=== PATIENT | male | born 1980 | race Caucasian/White ===

== ENCOUNTER → 2019-12-03 | Outpatient (CLI) | payer OTHER, SELFPAY ==
[2019-12-03 21:40] LABS: Chlamydia Trachomatis by PCR Negative (Negative); Neisserai gonorrhoeae by PCR Negative (Negative); Probe Check PASS; Sample Adequacy Control PASS; Specimen Processing Control PASS
== END | disposition home or self-care (01) ==
LOC: LABSPEC 16:28
PROVIDERS: PCP Family Medicine; Referring Provider Urology; Visit Provider Urology
DX: N48.9 Disorder of penis, unspecified (principal); N45.3 Epididymo-orchitis
CPT/HCPCS: 87491; 87591

== ENCOUNTER 2024-08-28 13:28 | Day surgery (SDC) | payer OTHER, SELFPAY ==
--- NOTE | 2024-08-28 | LES_PTH ---
PATIENT: HATTIE RAM II LOC: [facility] [place] U#:[id number] AGE/SX: 43/M ROOM: RE08/28/[address]: Dr. Roxane Prasad MD : 1980 BED: DIS: 08/28/2024 SPEC #: [id number] RECD: 08/28/24 16:52 STATUS: SRIKANTH OLIVARES #: [id number] JERRICA: 08/28/24 00:[address]: Roxane Prasad DEPT: SURGICAL PATHOLOGY RECD BY: Luan Blunt ENTERED: 08/31/24 08:00 SP TYPE: Lesion OTHR DR: Dr. Juan C Mae MD Tissues: Skin of foot, NOS Procedures: Surgery Specimen Level IV HEADER OPERATION: Excision lesion right foot PRE-OP DIAGNOSIS: Neoplasm of uncertain behavior of skin of foot TISSUE SUBMITTED: Lesion right foot MICROSCOPIC DIAGNOSIS Right foot lesion, excisional biopsy: Verrucca vulgaris. See comment. 09/01/2024 COMMENT Clinical correlation and appropriate follow up are necessary. MICROSCOPIC DESCRIPTION Slides are reviewed. GROSS DESCRIPTION Received in fixative is one container labeled with the patient's name and designated Right foot lesion. The specimen consists of an elliptical portion of skin measuring 2.2 x 2.0cm, excised to a depth of 0.6cm. The epidermis shows a flat white lesion measuring 1.7cm in greatest dimension. The lesion appears excised. The entire specimen is submitted as follows: 1- tips of ellipse, 2-3- remainder of specimen. 08/31/2024 TC:1 CPT:98858
[2024-08-28 13:43] VITALS: BP 119/79; PULSE 84; RESP 16; TEMP 36.7; O2SAT 95; BMI 37.0
--- NOTE | 2024-08-28 14:07 | PCM.HP.BLA ---
History and Physical Date of Admission: 08/28/24 The patient is examined and there are no changes from the H&P dated 08/12/2024. He is marked in the preop holding area prior to surgery. He presents for excision of the neoplasm of his right foot. No guarantees are made against recurrence. The specimen will be sent to pathology for evaluation. He is also aware of the expected prolonged healing of the area. Assessment & Plan Assessment/Plan (1) Neoplasm of uncertain behavior of skin of foot: PLAN: Plan For excision neoplasm foot.
[2024-08-28 14:33] VITALS: BP 114/57; BP 133/86; O2SAT 94; O2SAT 95; O2SAT 96; O2SAT 97
[2024-08-28] MEDS: Lidocaine 1% /Epi 1:100 9 ML, Sodium Bicarbonate 1 MEQ OPERA.SITE (14:43)
--- NOTE | 2024-08-28 15:19 | EX.PCM.DISCH ---
Discharge Instructions Dressing / Incision Additional Dressing/Incision Instructions:: Keep the dressing in place until seen next week. Take the oral antibiotic (Keflex) 2 times a day until finished. Keep your right leg elevated is much as possible to decrease swelling and pain. Follow Up Care Please Follow Up With: Roxane Prasad MD When: 1 week Test Results: Test results from this visit will be discussed in further detail at your follow-up appointment, if applicable. Discharge Plan Admission Attending Provider: Roxane Prasad Primary Care Provider: Juan C Mae Instructions Print Language: Macedonian Discharge Orders/Prescriptions Prescriptions: New cephalexin 500 mg capsule 500 mg PO BID 7 Days Qty: 14 0RF No Action sertraline [Zoloft] 50 mg tablet 50 mg PO QDAY Referrals / Follow Up: Juan C Mae MD [Primary Care Provider] - Disposition Disposition (needs filled in before D/C Order can be placed): Home, Self Care
--- NOTE | 2024-08-28 15:21 | PCM.OPRPT ---
Problems Associated Problem List Diagnoses (1) Neoplasm of uncertain behavior of skin of foot: Operative Report (Standard) Operative Information Surgery/Procedure Performed: Excision neoplasm right heel (3 cm) Surgeon: Roxane Prasad Date of Procedure: 08/28/24 Procedure Start Time: 14:42 Procedure Stop Time: 15:17 Pre-Operative Diagnosis: Neoplasm uncertain behavior right heel Post-Operative Diagnosis: Same Select all DRAINS/GRAFTS/IMPLANTS that apply: None Type of Anesthesia: Local Estimated Blood Loss: Minimal Specimen collected: Yes Description of specimen(s) removed: Chronic hyperkeratotic neoplasm of right heel Description of surgery: The patient presents with a 10-year history of a neoplasm of his right heel that has recurred despite multiple different modalities. He presents for excision of the neoplasm with submission for pathologic evaluation. He is aware of the potential for recurrence. He is also aware of the potential for prolonged wound healing in this location. Informed consent is obtained. The patient is brought to the operating room and placed on the operating room table in a left lateral decubitus position. The right heel was prepped and draped in the usual sterile fashion. We initially began with injecting 1% Xylocaine with epinephrine. The site is then excised using an Ellman electrocautery. The base is then fulgarized. The incision is then brought together gradually using interrupted silk sutures. Further refinement the closure is done with a running chromic suture. The site is dressed with Xeroform, gauze, Justin, and an Rehan wrap. An orthopedic shoe was also placed. He tolerated the procedure well was taken to the recovery area in an awake and stable condition. Needle and sponge counts are correct. Surgical Findings: Hyperkeratotic neoplasm of heel Liquefaction And Regasification Helper equity research associate: No Complications Complications: No Admit VTE Documentation VTE Mechan Device Prophylaxis: None Reason prophylaxis not ordered: Treatment Not Indicated
[2024-08-28 15:35] VITALS: BP 113/75; BP 119/79; PULSE 83; RESP 18; TEMP 36.6; O2SAT 94
== END 2024-08-28 15:42 | disposition home or self-care (01) ==
LOC: SDC 13:29 → AC 13:30
PROVIDERS: PCP Family Medicine; Referring Provider Plastic Surgery; Visit Provider Plastic Surgery
PROC: (CPT 11423; principal; 2024-08-28 14:05)
DX: L85.1 Acquired keratosis [keratoderma] palmaris et plantaris (principal)
CPT/HCPCS: 11423; 88305